=== PATIENT | male | born 1980 | race Caucasian/White ===

== ENCOUNTER 2024-03-31 02:30 | Inpatient (IN) | payer OTHER, SELFPAY ==
[2024-03-31] MEDS ORDERED: IPRATROPIUM BROM 0.5MG/2.5ML ONE (02:46)
[2024-03-31] MEDS ORDERED: METHYLPREDNISOLONE 125 MG INJ ONE (02:46)
[2024-03-31] MEDS ORDERED: LEVALBUTEROL 1.25 MG/3 ML NEB ONE (02:47)
[2024-03-31] MEDS ORDERED: MAGNESIUM SULFATE 1 gm IVPB 1 GM/100 ML BAG IV ONE (02:48)
[2024-03-31 02:58] LABS: Absolute Basophils 0.1 K/uL (0-0.5); Absolute Eosinophils 0.6 K/uL (0-0.5); Absolute Monocytes 1.2 K/uL (0.1-1.3); Absolute Neutrophil 8.1 K/uL (1.8-8.0); Basophils % 0.4 % (0-1.3); Hematocrit 47.1 % (39.6-49.0); Hemoglobin 15.6 g/dL (13.6-17.9); Lymphocytes % 16.6 % (15.3-44.8); MCH 29.4 pg (27.0-35.0); MCHC 33.2 g/dL (32.0-36.0); MCV 88.5 fL (80-100); MPV 8.1 fL (7.6-11.3); Monocytes % 10.1 % (3.3-12.3); Neutrophils % 67.9 % (41.7-73.7); Platelets 246 thou/uL (152-406); RBC Red Blood Cell Count 5.32 M/uL (4.33-5.43)
[2024-03-31 03:05] LABS: PT Prothrombin Time 12.4 SECONDS (9.5-12.5); PTT, Activated Partial Thromb 33.7 SECONDS (24.3-36.9); Protime INR 1.13
[2024-03-31 03:11] LABS: SARS-CoV-2 Antigen CONTROL BLUE LINE VIS/BG OK; SARS-CoV-2 Antigen Rapid Res Negative (Negative)
[2024-03-31 03:17] LABS: Albumin 3.9 g/dL (3.4-5.0); Albumin/Globulin Ratio 0.9 (1.1-1.8); Anion Gap 7.9 mEq/L (5.0-15.0); Bilirubin Total 0.4 mg/dL (0.2-1.0); Globulin 4.5 g/dL (2.3-3.5); Potassium 3.9 mEq/L (3.5-5.1); Protein, Total 8.4 g/dL (6.4-8.2); Troponin High Sensitivity 5.2 pg/mL (<58.9)
[2024-03-31] MEDS ORDERED: CEFTRIAXONE 1000 MG/VIAL ONE (03:52)
[2024-03-31] MEDS ORDERED: AZITHROMYCIN 500 MG INJ IVPB ONE (03:52)
[2024-03-31] MEDS ORDERED: NA CHLORIDE 0.9% 50 ML ONE (03:53)
[2024-03-31] MEDS ORDERED: NA CHLORIDE 0.9% 250 ML ONE (03:53)
--- NOTE | 2024-03-31 04:27 | EDPHYS ---
Physician Documentation [facility] Name: Chuckie Blanca Age: 43 yrs Sex: Male : 1980 Arrival Date: 03/31/2024 Time: 02:30 Bed 3 Private MD: ED Physician Crescencio Byrd HPI: 03/31 04:19 This 43 yrs old Male presents to ER via Wheelchair with complaints of Shortness Of rn Breath. 04:19 The patient has shortness of breath at rest, with light activity. rn 04:20 Onset: The symptoms/episode began/occurred 2 day(s) ago. Duration: The symptoms are rn continuous. The patient's shortness of breath is aggravated by exertion, light activity. Severity of symptoms: At their worst the symptoms were moderate in the emergency department the symptoms are unchanged. The patient has experienced similar episodes in the past. Patient reports feeling sick for 2 or 3 days, productive cough, shortness of breath and dyspnea with exertion. Patient reports heaviness of chest and feels like cannot take a deep breath. No history of DVT or PE. Has had pneumonia before and this feels identical. Reports multiple sick contacts. Patient is active smoker and long-term smoker. Historical: - Allergies: 02:40 No Known Allergies; jw7 - Home Meds: 02:40 Testosterone [Active]; jw7 - PMHx: 02:40 Pneumonia; Kidney stone; hyperlipidemia; jw7 - PSHx: 02:40 Right Knee; Left Hip; Back SX; Cholecystectomy; jw7 - Immunization history:: Adult Immunizations up to date, Client reports having NOT received the Covid vaccine. Flu vaccine is not up to date. - Infectious Disease History:: Denies. - Social history:: Smoking status: Patient reports the use of cigarette tobacco products, smokes one-half pack cigarettes per day, Patient/guardian denies using alcohol, street drugs, IV drugs. - Family history:: not pertinent. - Hospitalizations: : No recent hospitalization is reported. ROS: 04:20 Constitutional: + chills Cardiovascular: Negative for palpitations, and edema, rn Respiratory: + cough and sob Abdomen/GI: Negative for abdominal pain, nausea, vomiting, diarrhea, and constipation, MS/Extremity: Negative for injury and deformity, Skin: Negative for injury, rash, and discoloration, Neuro: + generalized weakness Exam: 04:20 Constitutional: This is a well developed, well nourished patient who is awake, alert, rn + moderate tachypnea and labored breathing Head/Face: Normocephalic, atraumatic. ENT: No stridor Cardiovascular: Tachycardic, regular. No pulse deficits. Respiratory: + Moderate tachypnea with poor inspiratory air movement, diffuse wheezing in upper lobes. Abdomen/GI: Soft, nontender MS/ Extremity: Pulses equal, no cyanosis. Neuro: Awake and alert, GCS 15 Vital Signs: 02:40 BP 161 / 102; Pulse 118; Resp 27 S; Temp 97.5(O); Pulse Ox 87% on R/A; Weight 90.72 kg; jw7 Height 5 ft. 4 in. ; Pain 0/10; 03:00 BP 142 / 81; Pulse 107; Resp 26 S; Pulse Ox 95% on 8 lpm Nebulizer Mask; jw7 03:49 BP 139 / 81; Pulse 102; Resp 17 S; Pulse Ox 98% on Nebulizer Mask; ha1 04:15 BP 137 / 85; Pulse 97; Resp 24 S; Pulse Ox 94% on 3 lpm NC; jw7 04:19 BP 136 / 77; Pulse 101; Resp 28; rn 04:51 BP 131 / 75; Pulse 97; Resp 17 S; Pulse Ox 95% on 4 lpm NC; ha1 02:40 Body Mass Index 34.33 (90.72 kg, 162.56 cm) [facility] 02:40 Pain Scale: Adult [facility] MDM: 02:32 Patient medically screened. rn 04:20 Differential diagnosis: Anemia Bronchitis Chronic Obstructive Pulmonary Disease rn Myocardial Infarction pneumonia, Pneumothorax pulmonary edema. Antibiotic administration: Data reviewed: vital signs, nurses notes, lab test result(s), EKG, radiologic studies, plain films, and as a result, I will admit patient. Consideration of Admission/Observation Patient was admitted/placed on observation. Escalation of care including admission/observation considered. Counseling: I had a detailed discussion with the patient and/or guardian regarding the historical points, exam findings, and any diagnostic results supporting the discharge/admit diagnosis, lab results, radiology results, the need for further work-up and treatment in the hospital. Response to treatment: the patient's symptoms have markedly improved after treatment, and as a result, I will admit patient. ED course: Patient feels much better but still tachypneic, requiring oxygen. Chest x-ray clear of pneumonia but patient with clinical signs and symptoms of pneumonia. No diagnosis of COPD but longtime smoker. Has improved with steroids and nebulizer treatment. No antibiotics administered. Lactate normal. Will admit to hospitalist service for antibiotics and further respiratory management.. 04:20 ED course: I personally spent 35 minutes engaged in work directly related to the rn individual patient's care. This does not include any time spent performing procedures. The patient has been deemed critically ill because of severe respiratory distress requiring multiple nebulizer treatments, oxygen supplementation and further admission to the hospital. 03/31 02:40 Order name: Blood Culture Adult (2) rn 03/31 02:40 Order name: CBC with Diff; Complete Time: 03:44 rn 03/31 02:40 Order name: CMP; Complete Time: 03:44 rn 03/31 02:40 Order name: Lactate w/ 2H reflex if indic.; Complete Time: 03:44 rn 03/31 02:40 Order name: Protime (+inr); Complete Time: 03:44 rn 03/31 02:40 Order name: Ptt, Activated; Complete Time: 03:44 rn 03/31 02:40 Order name: SARS RAPID; Complete Time: 03:44 rn 03/31 02:40 Order name: Flu; Complete Time: 03:44 rn 03/31 02:40 Order name: Troponin High Sensitivity; Complete Time: 03:44 rn 03/31 02:40 Order name: BNP; Complete Time: 03:44 rn 03/31 02:54 Order name: Glucose, Ancillary Testing; Complete Time: 03:44 EDMS 03/31 04:41 Order name: Thyroid Stimulating Hormone EDMS 03/31 04:41 Order name: CBC with Automated Diff EDMS 03/31 04:41 Order name: CBC with Automated Diff EDMS 03/31 04:41 Order name: Comprehensive Metabolic Panel EDMS 03/31 04:41 Order name: Comprehensive Metabolic Panel EDMS 03/31 04:41 Order name: Troponin High Sensitivity EDMS 03/31 04:41 Order name: Troponin High Sensitivity EDMS 03/31 04:41 Order name: Sputum Culture EDMS 03/31 02:40 Order name: Chest Single View XRAY rn 03/31 04:38 Order name: Chest For Pe Angio EDMS 03/31 02:40 Order name: Accucheck; Complete Time: 02:52 rn 03/31 02:40 Order name: Cardiac monitoring; Complete Time: 02:52 rn 03/31 02:40 Order name: EKG - Nurse/Tech; Complete Time: 02:52 rn 03/31 02:40 Order name: IV Saline Lock - Large Bore; Complete Time: 02:52 rn 03/31 02:40 Order name: Labs collected and sent; Complete Time: 02:52 rn 03/31 02:40 Order name: O2 Per Protocol; Complete Time: 02:52 rn 03/31 02:40 Order name: O2 Sat Monitoring; Complete Time: 02:53 rn 03/31 02:40 Order name: Vital Signs; Complete Time: 02:53 rn Administered Medications: 02:50 Drug: MethylPrednisoLONE IVP 125 mg IVP once Route: IVP; Site: left wrist; ha1 05:34 Follow up: Response: No adverse reaction; Marked relief of symptoms jw7 02:50 Drug: Magnesium Sulfate IVPB 1 grams IVPB once over 1 hrs Route: IVPB; Infused Over: 1 ha1 hrs; Site: left wrist; 05:34 Follow up: Response: No adverse reaction; IV Status: Completed infusion; IV Intake: jw7 100ml 02:57 Drug: Ipratropium Inhalation Aerosol 0.5 mg Inhalation once Route: Inhalation; ha1 05:34 Follow up: Response: No adverse reaction; Marked relief of symptoms jw7 02:57 Drug: Levalbuterol Inhalation 1.25 mg Inhalation once Route: Inhalation; ha1 05:33 Follow up: Response: No adverse reaction; Marked relief of symptoms jw7 03:30 Drug: Levalbuterol Inhalation 1.25 mg Inhalation once Route: Inhalation; ha1 05:34 Follow up: Response: No adverse reaction; Marked relief of symptoms jw7 03:30 Drug: Levalbuterol Inhalation 1.25 mg Inhalation once Route: Inhalation; ha1 05:33 Follow up: Response: No adverse reaction; Marked relief of symptoms jw7 03:50 Drug: Rocephin IV 1 grams IV at calculated rate once; Given slow IV push per pharmacy jw7 instructions Route: IV; Rate: calculated rate; Site: left wrist; 05:33 Follow up: Response: No adverse reaction; IV Status: Completed infusion; IV Intake: [id number] 04:10 Drug: Zithromax IVPB 500 mg IVPB once over 1 hrs; mix in 250 mL NS Route: IVPB; Infused jw7 Over: 1 hrs; Site: left wrist; 05:33 Follow up: Response: No adverse reaction; IV Status: Completed infusion; IV Intake: jw7 250ml Disposition: 04:20 Critical Care:. rn Disposition Summary: 03/31/24 04:26 Hospitalization Ordered Notes: Hospitalization Status: Inpatient Admission rn Provider: Ann Reilly rn Location: Telemetry/MedSurg (Inpatient) rn Condition: Stable rn Problem: new rn Symptoms: have improved rn Bed/Room Type: Standard rn Room Assignment: 218(03/31/24 04:44) kb3 Diagnosis - Pneumonia, unspecified organism rn - Hypoxemia rn Forms: - Medication Reconciliation Form rn - SBAR form rn - Leadership Thank You Letter manager internet time excluding procedures: 04:20 Critical care time: Bedside Care: 35 minutes. Total time: 35 minutes rn Signatures: Dispatcher [employer] EDCrescencio Chau MD MD rn Waits, Jodi RN RN jw7 Bruna Mckeon, RN RN ha1 Trisha Land, RN RN kb3 Corrections: (The following items were deleted from the chart) 02:41 02:41 BLOOD CULTURE*+BA.LAB.BRZ ordered. EDMS EDMS 02:41 02:41 CBC+H.LAB.BRZ ordered. EDMS EDMS 02:41 02:41 COMPREHENSIVE METABOLIC PANEL+C.LAB.BRZ ordered. EDMS EDMS 02:41 02:41 LACTATE+C.LAB.BRZ ordered. EDMS EDMS 02:41 02:41 PROTIME (+INR)+COAG.LAB.BRZ ordered. EDMS EDMS 02:41 02:41 PTT, ACTIVATED+COAG.LAB.BRZ ordered. EDMS EDMS 02:41 02:41 SARS-COV-2 Antigen Rapid+I.LAB.BRZ ordered. EDMS EDMS 02:41 02:41 Influenza Screen (A \T\ B)+BA.LAB.BRZ ordered. EDMS EDMS 02:41 02:41 Troponin High Sensitivity+C.LAB.BRZ ordered. EDMS EDMS 02:41 02:41 PROBNP+C.LAB.BRZ ordered. EDMS EDMS 02:41 02:41 Chest Single View+RAD.RAD.BRZ ordered. EDMS EDMS 04:21 04:20 Constitutional: + chills Cardiovascular: Negative for chest pain, palpitations, rn and edema, Respiratory: + cough and sob Abdomen/GI: Negative for abdominal pain, nausea, vomiting, diarrhea, and constipation, MS/Extremity: Negative for injury and deformity, Skin: Negative for injury, rash, and discoloration, Neuro: + generalized weakness rn 04:24 04:20 Constitutional: This is a well developed, well nourished patient who is awake, rn alert, and in no acute distress. rn 04:44 04:26 rn kb3
--- NOTE | 2024-03-31 04:27 | ER ---
Nurse's Notes [facility] Name: Chuckie Blanca Age: 43 yrs Sex: Male : 1980 Arrival Date: 03/31/2024 Time: 02:30 Bed 3 Private MD: Diagnosis: Pneumonia, unspecified organism;Hypoxemia Presentation: 03/31 02:40 Chief complaint: Patient states: Shortness of Breath for two days, feels like someone jw7 is sitting on my chest, making it hard to breath. Coronavirus screen: cough unrelated to allergies, difficulty breathing, shortness of breath. Ebola Screen: No symptoms or risks identified at this time. 02:40 Method Of Arrival: Wheelchair jw7 02:40 Initial Sepsis Screen: Does the patient meet any 2 criteria? RR > 20 per min. HR > 90 jw7 bpm. Yes Does the patient have a suspected source of infection? No. Patient's initial sepsis screen is negative. Risk Assessment: Do you want to hurt yourself or someone else? Patient reports no desire to harm self or others. Onset of symptoms was March 29, 2024. 02:40 Acuity: HAY 3 jw7 Triage Assessment: 02:32 General: Appears uncomfortable, Behavior is cooperative, agitated, anxious. Pain: ha1 Denies pain. Neuro: Level of Consciousness is awake, alert, obeys commands, Oriented to person, place, time, situation. Cardiovascular: Capillary refill < 3 seconds Patient's skin is warm and dry. Respiratory: Reports shortness of breath at rest cough that is non-productive, labored breathing Airway is patent Respiratory effort is with nasal flaring, Respiratory pattern is tachypnea Breath sounds with wheezes bilaterally. GI: Abdomen is round non-distended. : No signs and/or symptoms were reported regarding the genitourinary system. Derm: Skin is healthy with good turgor, Skin is diaphoretic, Skin is normal. Musculoskeletal: Circulation, motion, and sensation intact. Range of motion: intact in all extremities. Historical: - Allergies: 02:40 No Known Allergies; jw7 - Home Meds: 02:40 Testosterone [Active]; jw7 - PMHx: 02:40 Pneumonia; Kidney stone; hyperlipidemia; jw7 - PSHx: 02:40 Right Knee; Left Hip; Back SX; Cholecystectomy; jw7 - Immunization history:: Adult Immunizations up to date, Client reports having NOT received the Covid vaccine. Flu vaccine is not up to date. - Infectious Disease History:: Denies. - Social history:: Smoking status: Patient reports the use of cigarette tobacco products, smokes one-half pack cigarettes per day, Patient/guardian denies using alcohol, street drugs, IV drugs. - Family history:: not pertinent. - Hospitalizations: : No recent hospitalization is reported. Screenin:32 Abuse screen: Denies threats or abuse. Denies injuries from another. Nutritional ha1 screening: No deficits noted. Tuberculosis screening: No symptoms or risk factors identified. 02:40 [facility] ED Fall Risk Assessment (Adult) History of falling in the last 3 months, jw7 including since admission No falls in past 3 months (0 pts) Confusion or Disorientation No (0 pts) Intoxicated or Sedated No (0 pts) Impaired Gait No (0 pts) Mobility Assist Device Used No (0 pt) Altered Elimination No (0 pt) Score/Fall Risk Level 0 - 2 = Low Risk Oriented to surroundings, Maintained a safe environment, Educated pt \T\ family on fall prevention, incl call for assistance when getting out of bed. Assessment: 02:32 Reassessment: see triage assessment. ha1 03:30 Reassessment: Patient appears in no apparent distress at this time. No changes from jw7 previously documented assessment. Patient and/or family updated on plan of care and expected duration. Pain level reassessed. Patient is alert, oriented x 3, equal unlabored respirations, skin warm/dry/pink. 04:36 Reassessment: Patient appears in no apparent distress at this time. No changes from jw7 previously documented assessment. Patient and/or family updated on plan of care and expected duration. Pain level reassessed. Patient is alert, oriented x 3, equal unlabored respirations, skin warm/dry/pink. 04:57 Reassessment: going to CT. ha1 Vital Signs: 02:40 BP 161 / 102; Pulse 118; Resp 27 S; Temp 97.5(O); Pulse Ox 87% on R/A; Weight 90.72 kg; jw7 Height 5 ft. 4 in. ; Pain 0/10; 03:00 BP 142 / 81; Pulse 107; Resp 26 S; Pulse Ox 95% on 8 lpm Nebulizer Mask; jw7 03:49 BP 139 / 81; Pulse 102; Resp 17 S; Pulse Ox 98% on Nebulizer Mask; ha1 04:15 BP 137 / 85; Pulse 97; Resp 24 S; Pulse Ox 94% on 3 lpm NC; jw7 04:19 BP 136 / 77; Pulse 101; Resp 28; rn 04:51 BP 131 / 75; Pulse 97; Resp 17 S; Pulse Ox 95% on 4 lpm NC; ha1 02:40 Body Mass Index 34.33 (90.72 kg, 162.56 cm) jw7 02:40 Pain Scale: Adult 7 ED Course: 02:30 First set of blood cultures drawn by ED staff. jw7 02:32 Patient arrived in ED. kmf 02:32 Crescencio Byrd MD is Attending Physician. rn 02:40 Arm band placed on. jw7 02:40 Patient has correct armband on for positive identification. Bed in low position. Call 7 light in reach. Side rails up X 1. 02:40 Provided Education on: Use of Call Light. jw7 02:45 Inserted saline lock: 20 gauge in left wrist, using aseptic technique. Blood collected. jw7 02:45 Initial lab(s) drawn, by ED staff, sent to lab. Second set of blood cultures drawn by [facility] ED staff. 02:49 COVID swab sent to lab. Flu and/or RSV swab sent to lab. jw7 02:53 Blood Culture Adult (2) Sent. jw7 02:53 CBC with Diff Sent. jw7 02:53 CMP Sent. jw7 02:53 Lactate w/ 2H reflex if indic. Sent. jw7 02:53 Protime (+inr) Sent. jw7 02:53 Ptt, Activated Sent. jw7 02:53 SARS RAPID Sent. jw7 02:53 Flu Sent. jw7 02:53 Troponin High Sensitivity Sent. jw7 02:53 BNP Sent. jw7 02:54 EKG done, by ED staff, reviewed by Crescencio Byrd MD. kmf 02:57 Triage completed. jw7 03:09 Chest Single View XRAY In Process Unspecified. EDMS 04:25 Ann Reilly MD is Hospitalizing Provider. rn 05:23 No provider procedures requiring assistance completed. Patient admitted, IV remains in ha1 place. Administered Medications: 02:50 Drug: MethylPrednisoLONE IVP 125 mg IVP once Route: IVP; Site: left wrist; ha1 05:34 Follow up: Response: No adverse reaction; Marked relief of symptoms jw7 02:50 Drug: Magnesium Sulfate IVPB 1 grams IVPB once over 1 hrs Route: IVPB; Infused Over: 1 ha1 hrs; Site: left wrist; 05:34 Follow up: Response: No adverse reaction; IV Status: Completed infusion; IV Intake: jw7 100ml 02:57 Drug: Ipratropium Inhalation Aerosol 0.5 mg Inhalation once Route: Inhalation; ha1 05:34 Follow up: Response: No adverse reaction; Marked relief of symptoms jw7 02:57 Drug: Levalbuterol Inhalation 1.25 mg Inhalation once Route: Inhalation; ha1 05:33 Follow up: Response: No adverse reaction; Marked relief of symptoms jw7 03:30 Drug: Levalbuterol Inhalation 1.25 mg Inhalation once Route: Inhalation; ha1 05:34 Follow up: Response: No adverse reaction; Marked relief of symptoms jw7 03:30 Drug: Levalbuterol Inhalation 1.25 mg Inhalation once Route: Inhalation; ha1 05:33 Follow up: Response: No adverse reaction; Marked relief of symptoms jw7 03:50 Drug: Rocephin IV 1 grams IV at calculated rate once; Given slow IV push per pharmacy jw7 instructions Route: IV; Rate: calculated rate; Site: left wrist; 05:33 Follow up: Response: No adverse reaction; IV Status: Completed infusion; IV Intake: [id number] 04:10 Drug: Zithromax IVPB 500 mg IVPB once over 1 hrs; mix in 250 mL NS Route: IVPB; Infused jw7 Over: 1 hrs; Site: left wrist; 05:33 Follow up: Response: No adverse reaction; IV Status: Completed infusion; IV Intake: jw7 250ml Medication: 05:23 VIS not applicable for this client. ha1 Intake: 05:33 IV: 250ml; Total: 250ml. jw7 05:33 IV: 50ml; Total: 300ml. jw7 05:34 IV: 100ml; Total: 400ml. jw7 Outcome: 04:26 Decision to Hospitalize by Provider. rn 05:25 Admitted to Med/surg accompanied by nurse, via stretcher, with chart, ha1 05:25 Condition: stable 05:25 Instructed on the need for admit, Demonstrated understanding of instructions, 05:35 Patient left the ED. jw7 Signatures: Dispatcher [employer] EDMS Crescencio Byrd MD MD rn Waits, Jodi RN RN jw7 Bruna Mckeon RN RN 1 Miesha Patel [facility]
[2024-03-31] MEDS ORDERED: ONDANSETRON 4 MG/2 ML VIAL IV PRN (04:36)
[2024-03-31] MEDS ORDERED: MORPHINE 2 MG/ML SYR IV PRN (04:36)
[2024-03-31] MEDS ORDERED: ALBUTEROL 2.5 MG/3 ML NEB SOL NEB PRN (04:36)
[2024-03-31] MEDS ORDERED: ACETAMINOPHEN 500 MG TAB PO PRN (04:36)
[2024-03-31] MEDS ORDERED: HYDRALAZINE HCL 20 MG/ML VIAL IV PRN ×2 (04:38→05:01)
--- NOTE | 2024-03-31 04:45 | P.HP ---
Certification for Inpatient Patient admitted to: Observation With expected LOS: <2 Midnights Patient will require the following post-hospital care: None Practitioner: I am a practitioner with admitting privileges, knowledge of patient current condition, hospital course, and medical plan of care. Services: Services provided to patient in accordance with Admission requirements found in Title 42 Section 412.3 of the Code of Federal Regulations Patient History Date of Service: 03/31/24 Reason for admission: Shortness of breath History of Present Illness: 43-year-old male with past medical history of kidney stones, recurrent pneumonia last episode was in 2013, chronic tobacco user, who presented with sudden onset shortness of breath since the last 2 days. Patient states shortness of breath has been gradually worsening. He states shortness of breath exacerbated with chest pressure. He admits to cough with intermittent wheezing.. He states is a s if someone is sitting on his chest, chest pressure remained persistent and constant. He denies any dizziness or palpitation. He admits to regular testosterone use. On arrival in the ER, he was tachycardic with heart rate of 118, O2 sat of 87% on room air. Afebrile. Chest x-ray shows no acute pulmonary infiltrate (although images reviewed by me shows what looks like a small right perihilar infiltrate). WBC elevated at 12,000 with no left shift, BMP was unremarkable. Patient is being admitted for presumed pneumonia - Past Medical/Surgical History -: Kidney stone -: Hyperlipidemia -: Cholecystectomy -: Back surgery -: Knee and hip surgery - Family History Family History: Reviewed- Non-Contributory - Social History Smoking Status: Current every day smoker Smoking therapy provided: Yes Patient receptive to therapy: Yes Alcohol use: No CD- Drugs: No Caffeine use: No Place of Residence: Home Review of Systems Respiratory: Cough, Shortness of Breath, SOB with Excertion, Pleuritic Pain Physical Examination - Physical Exam General: Alert, In no apparent distress, Oriented x3, Cooperative, Mild distress, Obese HEENT: Atraumatic, Normocephalic, Mucous membr. moist/pink Neck: Supple, 2+ carotid pulse no bruit Respiratory: Normal air movement, Expiratory wheezes, Rhonchi/gurgles Cardiovascular: No edema, Regular rate/rhythm, Normal S1 S2 Gastrointestinal: Normal bowel sounds, Soft and benign, Non-distended, No ascites, No tenderness Musculoskeletal: No clubbing, No swelling Integumentary: No rashes, No significant lesion, No tenderness/swelling Neurological: Normal speech, Normal strength at 5/5 x4 extr, Sensation intact, Cranial nerves 3-12 intact - Studies Laboratory Data (last 24 hrs) 03/31/24 03/31/24 03/31/24 02:45 02:45 02:45 WBC 12.00 H Hgb 15.6 Hct 47.1 Plt Count 246 PT 12.4 INR 1.13 APTT 33.7 Sodium 136 Potassium 3.9 BUN 17 Creatinine 0.97 Glucose 137 H Total Bilirubin 0.4 AST 17 ALT 38 Alkaline Phosphatase 91 Microbiology Data (last 24 hrs): 03/31/24 02:45 Nasopharnyx Influenza Type A Antigen Screen - Final 03/31/24 02:45 Nasopharnyx Influenza Type B Antigen Screen - Final Assessment and Plan - Plan Impression Acute dyspneawith suspected right lower lobe pneumoniacommunity-acquired; rule out pulmonary embolism given history of testosterone use Hypoxic respiratory failureon O2, COPD exacerbationmild Chronic tobacco use History of testosterone use Plan Will admit patient to observation Initiate oxygen at 2 L nasal cannula Wean as tolerated Start gentle IV fluid with normal saline Start empirical antibiotics with cefepime Obtain sputum culture. And sensitivity DuoNebs every 6 Blood culture x 2 Obtain CTA chest to rule out PE Pain control Lovenox 1 mg/kg every 12 empirically on tPA ruled out Full code - Advance Directives Does patient have a Living Will: No Does patient have a Durable POA for Healthcare: No
[2024-03-31] MEDS ORDERED: BENZONATATE 100 MG CAP PO PRN (05:01)
[2024-03-31] MEDS: NA CHLORIDE 0.9% 1,000 ML IV SCH (05:48)
[2024-03-31] MEDS: ENOXAPARIN 80 MG/0.8 ML SQ SCH (06:03)
[2024-03-31 07:00] VITALS: BMI 34.3
[2024-03-31] MEDS: IPRATROPIUM BROM 0.5MG/2.5ML NEB SCH (08:07)
[2024-03-31] MEDS: ALBUTEROL 2.5 MG/3 ML NEB SOL NEB SCH (08:07)
[2024-03-31] MEDS ORDERED: MORPHINE 4 MG/ML SYR IV PRN (08:10)
[2024-03-31] MEDS: NICOTINE 21 MG/PAT TD SCH (09:00)
[2024-03-31] MEDS: CEFEPIME 1 GM in NA CHLORIDE 0.9% 100 ML IV SCH (10:09)
[2024-03-31] MEDS: FAMOTIDINE 20 MG TAB PO SCH (10:09)
[2024-03-31] MEDS: ASPIRIN EC 81 MG TAB PO SCH (10:09)
--- NOTE | 2024-03-31 10:38 | P.PN ---
Date of Service: 03/31/24 Pt seen and examined. Pt is a 43 yo male with past medical history of kidney stones, recurrent pneumonia last episode was in 2013, and chronic tobacco user who presented with sudden onset shortness of breath since the last 2 days. A/P: Acute dyspnea: likely due to pneumonia or PE or COPD exacerbation: Will continue cefepime and f/u blood cx. Will continue empiric therapeutic lovenox. CTA chest is pending. Possible PE: Will continue therapeutic lovenox. Will f/u CTA chest. Acute COPD exacerbation: Will continue solumedrol 40mg iv TID, cefepime, oxygen and prn duoneb. WIll consult Pulm. Pt is a smoker. Acute Hypoxic respiratory failure: Due to COPD/ pna/ possible PE. Continue treatment listed above. Chronic tobacco use: Pt was advised to quit using tobacco. Will give nicotine patch. History of testosterone use: noted. DVT ppx: lovenox. Code: Full code
[2024-03-31] MEDS: GUAIFENESIN 600 MG SA TAB PO SCH (11:14)
--- NOTE | 2024-03-31 15:26 | EKG ---
Test Date: 2024-03-31 Test Time: 02:41:24 Drug Enforcement Agent: SHEELA MEASUREMENT RESULTS: Intervals: Rate: 108 IL: 136 QRSD: 88 QT: 324 QTc: 434 [place]: P: 72 IL: 136 QRS: 68 T: 74 INTERPRETIVE STATEMENTS: Sinus tachycardia Otherwise normal ECG No previous ECG available for comparison Electronically Signed On 03-31-24 15:26:11 CDT by Nasim Pascual
[2024-03-31] MEDS: METHYLPREDNISOLONE 40 MG INJ IV SCH (17:02)
[2024-04-01 04:17] LABS: Absolute Monocytes 0.6 K/uL (0.1-1.3); Absolute Neutrophil 10.1 K/uL (1.8-8.0); Basophils % 0.1 % (0-1.3); Eosinophils % 0.1 % (0-4.4); Hematocrit 41.6 % (39.6-49.0); Hemoglobin 13.6 g/dL (13.6-17.9); Lymphocytes % 8.5 % (15.3-44.8); MCH 29.3 pg (27.0-35.0); MCHC 32.8 g/dL (32.0-36.0); MCV 89.3 fL (80-100); Monocytes % 5.1 % (3.3-12.3); Neutrophils % 86.2 % (41.7-73.7); Platelets 231 thou/uL (152-406); RBC Red Blood Cell Count 4.66 M/uL (4.33-5.43); Red Cell Distribution Width 13.1 % (12.1-15.2)
[2024-04-01 04:22] LABS: Albumin 3.2 g/dL (3.4-5.0); Albumin/Globulin Ratio 0.8 (1.1-1.8); Anion Gap 7.1 mEq/L (5.0-15.0); Bilirubin Total 0.2 mg/dL (0.2-1.0); Globulin 4.1 g/dL (2.3-3.5); Potassium 5.1 mEq/L (3.5-5.1); Protein, Total 7.3 g/dL (6.4-8.2); Troponin High Sensitivity 12.5 pg/mL (<58.9)
[2024-04-01 04:43] LABS: Band Neutrophils 25 % (0-1); Differential Total Cells Count 100; Lymphocytes 6 % (15-42); Monocytes 4 % (0-10); Segmented Neutrophils 65 % (40-80)
[2024-04-01 04:44] LABS: Blood Morphology Comment NOT SEEN (NOT SEEN); Platelet Estimate ADEQ
--- NOTE | 2024-04-01 08:47 | P.PN ---
Subjective Date of Service: 04/01/24 Chief Complaint: Shortness of breath 43-year-old male with past medical history of kidney stones, recurrent pneumonia last episode was in 2013, chronic tobacco user, who presented with sudden onset shortness of breath since the last 2 days. Is noted to have pneumonia, treated with IV antibiotics, CT PE protocol negative for PE - Physical Exam General: Alert, In no apparent distress, Oriented x3, Cooperative, Mild distress, Obese HEENT: Atraumatic, Normocephalic, Mucous membr. moist/pink Neck: Supple, 2+ carotid pulse no bruit Respiratory: Normal air movement, Expiratory wheezes, Rhonchi/gurgles Cardiovascular: No edema, Regular rate/rhythm, Normal S1 S2 Gastrointestinal: Normal bowel sounds, Soft and benign, Non-distended, No ascites, No tenderness Musculoskeletal: No clubbing, No swelling Integumentary: No rashes, No significant lesion, No tenderness/swelling Neurological: Normal speech, Normal strength at 5/5 x4 extr, Sensation intact, Cranial nerves 3-12 intact Review of Systems Per HPI Physical Examination - Vital Signs Temperature: 98 F Blood Pressure: 128/73 Pulse: 91 Respirations: 20 Pulse Ox (%): 95 Assessment And Plan - Plan Assessment plan Acute dyspneawith suspected right lower lobe pneumoniacommunity-acquired; rule out pulmonary embolism given history of testosterone use Hypoxic respiratory failureon O2, secondary to pneumonia COPD exacerbationmild Obstructive sleep apnea Chronic tobacco use History of testosterone use Pulmonary nodule Plan Will admit patient to observation Initiate oxygen at 2 L nasal cannula-evaluation need for home with Wean as tolerated Start gentle IV fluid with normal saline Start empirical antibiotics with cefepime Obtain sputum culture. And sensitivity DuoNebs every 6 Blood culture x 2 Obtain CTA chest to rule out PE negative for PE, will need repeat CT scan in 3 to 6 months after discharge lung RADS guidelines 2017 Pain control Will need eval for outpatient sleep study DVT Lovenox 1 mg/kg every 12 empirically on tPA ruled out Full code Cardiac diet Discharge Plan: Home - Code Status/Comfort Care Code Status: Full Code Critical Care: No Time Spent Managing PTS Care (In Minutes): 35
--- NOTE | 2024-04-01 10:07 | RAD REPORT ---
EXAM DESCRIPTION: CT - Chest For Pe Angio - 03/31/2024 6:59 am CLINICAL HISTORY: R/o PE COMPARISON: None. TECHNIQUE: CT CHEST ANGIOGRAPHY WITH IV CONTRAST on 03/31/2024 4:36 AM CDT. MIPS reconstructions were generated. This exam was performed according to our departmental dose-optimization program, which includes autom ated exposure control, adjustment of the mA and/or kV according to patient size and/or use of iterati ve reconstruction technique. MIP images were generated. FINDINGS: Thoracic aorta is normal in course and caliber without aneurysm or dissection. Pulmonary a rteries are suboptimally opacified. There are no large central filling defects. The heart is normal in size. There is no pericardial effusion. Intrathoracic lymph nodes are not enla rged. There is no pleural effusion, pleural thickening or pneumothorax. Central airways are patent. There i s minimal airspace disease in the medial right middle lobe. There is a posterior right lower lobe pul monary nodule measuring 6 mm. There is a 3 mm lingular nodule. There are no acute abnormalities within the limited images of the upper abdomen. There are no acute osseous findings. No suspicious bony lesions. IMPRESSION: No aortic dissection or aneurysm. No large or central pulmonary embolus. Possible right middle lobe pneumonia. Multiple pulmonary nodules. Most significant: Right solid pulmonary nodule measuring 6 mm. Per Fleisc hner Society Guidelines, recommend a non-contrast Chest CT at 3-6 months, then consider another non-c ontrast Chest CT at 18-24 months. If patient is low risk for malignancy, non-contrast Chest CT at 18- 24 months is optional. These guidelines do not apply to immunocompromised patients and patients with cancer. Follow up in pa tients with significant comorbidities as clinically warranted. For lung cancer screening, adhere to L [place]uke-RADS guidelines. Reference: Radiology. 2017; 284(1):228-43. Electronically signed by: Randall Olguin MD 03/31/2024 06:19 AM CDT RP Due to temporary technical issues with the PACS/Fluency reporting system, reports are being signed by the in house radiologist without review as a courtesy to ensure prompt reporting. The interpreting r adiologist is fully responsible for the content of the report.
--- NOTE | 2024-04-01 11:23 | RAD REPORT ---
EXAM DESCRIPTION: RAD - Chest Single View - 03/31/2024 3:07 am CLINICAL HISTORY: 43 years, Male, Cough;Dyspnea COMPARISON: None FINDINGS: 1 views of the chest was obtained. No prior films are available at this time for compari son. There is normal lung volume. Mediastinum: The cardiomediastinal silhouette appears normal in size and shape. Lungs: No areas of consolidations or masses are identified. Heart: The heart is normal in size. Thoracic aorta: The thoracic aorta demonstrate to be normal. Pulmonary vasculature: The pulmonary vasculature is normal in distribution. Pleura: The costophrenic angles demonstrate to be sharp. Osseous structures: The bony structures demonstrate to be within normal limits. Other: External EKG leads within the [id number] limits diagnosis. IMPRESSION: No acute cardiopulmonary disease is seen Electronically signed by: Lencho Reyez MD 03/31/2024 03:53 AM CDT RP Due to temporary technical issues with the PACS/Fluency reporting system, reports are being signed by the in house radiologist without review as a courtesy to ensure prompt reporting. The interpreting r adiologist is fully responsible for the content of the report.
--- NOTE | 2024-04-01 12:05 | EKG ---
Test Date: 2024-03-31 Test Time: 02:42:50 Mimeographer: SHEELA MEASUREMENT RESULTS: Intervals: Rate: 104 [place]: 128 QRSD: 88 QT: 332 QTc: 436 [place]: P: 59 [place]: 128 QRS: 71 T: 71 INTERPRETIVE STATEMENTS: Sinus tachycardia Otherwise normal ECG Compared to ECG 03/31/2024 02:41:24 No significant changes Electronically Signed On 04-01-24 12:03:20 CDT by Nasim Pascual
[2024-04-01] MEDS ORDERED: ALBUTEROL 2.5 MG/3 ML NEB SOL NEB PRN (12:16)
--- NOTE | 2024-04-01 12:20 | P.CNS ---
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 had 2 episodes of an exacerbation since 2012 was hospitalized twice apparently at one time he was also intubated denies any previous history of dyspnea on exertion does not know history of COPD Allergies No Known Allergies Allergy (Unverified 03/31/24 05:06) - Past Medical/Surgical History Diabetic: No -: Kidney stone -: Hyperlipidemia -: pneumonia -: Cholecystectomy -: Back surgery -: Knee and hip surgery - Social History Smoking Status: Current every day smoker Alcohol use: No CD- Drugs: No Caffeine use: Yes Place of Residence: Home Review of Systems 10-point ROS is otherwise unremarkable Physical Examination Temp Pulse Resp BP Pulse Ox 98 F 91 H 20 128/73 95 04/01/24 08:50 04/01/24 08:50 04/01/24 08:50 04/01/24 08:50 04/01/24 08:50 General: Alert, Oriented x3 Respiratory: Expiratory wheezes Cardiovascular: No edema, Normal pulses, Regular rate/rhythm Gastrointestinal: Normal bowel sounds, Soft and benign Musculoskeletal: No clubbing, No swelling Laboratory Data (last 24 hrs) 04/01/24 04/01/24 03:07 03:07 WBC 11.70 H Hgb 13.6 D Hct 41.6 Plt Count 231 Sodium 137 Potassium 5.1 D BUN 23 H Creatinine 1.03 Glucose 219 H Total Bilirubin 0.2 AST 16 ALT 33 Alkaline Phosphatase 75 - Problems (1) COPD exacerbation Current Visit: Yes Status: Acute Plan: Patient is 43 years of age admitted with COPD exacerbation there is minimal infiltrate in the right middle lobe he is a heavy smoker history of exacerbations when changed to p.o. 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
[2024-04-01] MEDS: IPRATROPIUM BROM 0.5MG/2.5ML NEB SCH (13:23)
[2024-04-01] MEDS ORDERED: predniSONE 20 MG TAB PO SCH (21:00)
[2024-04-01] MEDS: AMOX/K CLAV 875 MG TAB PO SCH (21:23)
[2024-04-01] MEDS: predniSONE 20 MG TAB PO SCH (21:23)
[2024-04-01] MEDS: DULERA 200/5 (MOMETASONE/FORMOTEROL) INHALER IH SCH (21:23)
[2024-04-02 01:37] VITALS: O2SAT 96
[2024-04-02 03:37] LABS: Absolute Lymphocytes (CBC) 1.2 K/uL (0.7-4.9); Absolute Monocytes 0.7 K/uL (0.1-1.3); Absolute Neutrophil 13.8 K/uL (1.8-8.0); Basophils % 0.1 % (0-1.3); Eosinophils % 0.1 % (0-4.4); Hematocrit 39.7 % (39.6-49.0); Hemoglobin 13.2 g/dL (13.6-17.9); Lymphocytes % 7.7 % (15.3-44.8); MCH 29.4 pg (27.0-35.0); MCHC 33.2 g/dL (32.0-36.0); MCV 88.7 fL (80-100); Monocytes % 4.8 % (3.3-12.3); Platelets 240 thou/uL (152-406); RBC Red Blood Cell Count 4.47 M/uL (4.33-5.43)
[2024-04-02 03:53] LABS: Neutrophils % 87.3 % (41.7-73.7)
[2024-04-02 04:02] LABS: Anion Gap 6.1 mEq/L (5.0-15.0); Magnesium 2.3 mg/dL (1.6-2.4); Potassium 4.1 mEq/L (3.5-5.1)
[2024-04-02 05:42] VITALS: BP 140/87; TEMP 98.1
--- NOTE | 2024-04-02 08:14 | P.PN ---
Subjective Date of Service: 04/02/24 Chief Complaint: Shortness of breath 43-year-old male with past medical history of kidney stones, recurrent pneumonia last episode was in 2013, chronic tobacco user, who presented with sudden onset shortness of breath since the last 2 days. Is noted to have pneumonia, treated with IV antibiotics, transitioned to Augmentin PO BID CT PE protocol negative for PE - Physical Exam General: Alert, In no apparent distress, Oriented x3, Cooperative, Mild distress, Obese HEENT: Atraumatic, Normocephalic, Mucous membr. moist/pink Neck: Supple, 2+ carotid pulse no bruit Respiratory: Normal air movement, Expiratory wheezes, Rhonchi/gurgles Cardiovascular: No edema, Regular rate/rhythm, Normal S1 S2 Gastrointestinal: Normal bowel sounds, Soft and benign, Non-distended, No ascites, No tenderness Musculoskeletal: No clubbing, No swelling Integumentary: No rashes, No significant lesion, No tenderness/swelling Neurological: Normal speech, Normal strength at 5/5 x4 extr, Sensation intact, Cranial nerves 3-12 intact Review of Systems per HPI Physical Examination - Vital Signs Temperature: 98.1 F Blood Pressure: 140/87 Pulse: 75 Respirations: 18 Pulse Ox (%): 96 Assessment And Plan - Plan Assessment plan Acute dyspneawith suspected right lower lobe pneumoniacommunity-acquired; rule out pulmonary embolism given history of testosterone use Hypoxic respiratory failureon O2, secondary to pneumonia COPD exacerbationmild Obstructive sleep apnea Chronic tobacco use History of testosterone use Pulmonary nodule Plan Will admit patient to observation Initiate oxygen at 2 L nasal cannula-evaluation need for home with Wean as tolerated Start gentle IV fluid with normal saline Start empirical antibiotics with cefepime Obtain sputum culture. And sensitivity DuoNebs every 6 Blood culture x 2 Obtain CTA chest to rule out PE negative for PE, will need repeat CT scan in 3 to 6 months after discharge lung RADS guidelines 2017 Pain control Will need eval for outpatient sleep study DVT Lovenox 1 mg/kg every 12 empirically on tPA ruled out Full code Cardiac diet Discharge Plan: Home Critical Care: No Time Spent Managing PTS Care (In Minutes): 35
--- NOTE | 2024-04-02 08:16 | P.DS ---
Admission Date: 04/01/24 Discharge Date: 04/03/24 Disposition: ROUTINE DISCHARGE Discharge Condition: GOOD Reason for Admission: Shortness of breath Brief History of Present Illness: 43-year-old male with past medical history of kidney stones, recurrent pneumonia last episode was in 2013, chronic tobacco user, who presented with sudden onset shortness of breath since the last 2 days. Patient states shortness of breath has been gradually worsening. He states shortness of breath exacerbated with chest pressure. He admits to cough with intermittent wheezing.. He states is as if someone is sitting on his chest, chest pressure remained persistent and constant. He denies any dizziness or palpitation. He admits to regular testosterone use. On arrival in the ER, he was tachycardic with heart rate of 118, O2 sat of 87% on room air. Afebrile. Chest x-ray shows no acute pulmonary infiltrate (although images reviewed by me shows what looks like a small right perihilar infiltrate). WBC elevated at 12,000 with no left shift, BMP was unremarkable. Patient is being admitted for presumed pneumonia - Physical Exam General: Alert, In no apparent distress, Oriented x3, Cooperative, Mild distress, Obese HEENT: Atraumatic, Normocephalic, Mucous membr. moist/pink Neck: Supple, 2+ carotid pulse no bruit Respiratory: Normal air movement, equal unlabored Cardiovascular: No edema, Regular rate/rhythm, Normal S1 S2 Gastrointestinal: Normal bowel sounds, Soft and benign, Non-distended, No ascites, No tenderness Musculoskeletal: No clubbing, No swelling Integumentary: No rashes, No significant lesion, No tenderness/swelling Neurological: Normal speech, Normal strength at 5/5 x4 extr, Sensation intact, Cranial nerves 3-12 intact Hospital Course: 43 year-old male with past medical history of kidney stones, recurrent pneumonia last episode was in 2013, chronic tobacco user, who presented with sudden onset shortness of breath since the last 2 days. Patient states shortness of breath has been gradually worsening. He states shortness of breath exacerbated with chest pressure. He admits to cough with intermittent wheezing was evaluated by Pulmonary, can Discharge home, follow up with Pulmonary after discharge Assessment COPD Exacerbation Pnuemonia- DC home on inhalers, PO antibitotics, follow up with Pulmonary in 1-2 weeks Tobacco use- educated on Tobacco cessation Continue home medicines as previously prescribed GOAL: Clear understanding of disease process INSTRUCTIONS: Physician Discharge Instructions: -Follow-up with PCP in 1 to 2 weeks -Please call Dr. Seth at [phone] if any questions regarding hospital stay -Please call nursing station at [phone] if any nursing or medication questions -Return to the emergency room if symptoms worsen Diet: ADA, low sodium Activity: Fall precautions Vital Signs/Physical Exam: Temp Pulse Resp BP Pulse Ox 98.1 F 75 18 140/87 96 04/02/24 08:15 04/02/24 08:15 04/02/24 08:15 04/02/24 08:15 04/02/24 08:15 Laboratory Data at Discharge: WBC 15.80 thou/uL (4.3-10.9) H 04/02/24 02:43 Hgb 13.2 g/dL (13.6-17.9) L 04/02/24 02:43 Hct 39.7 % (39.6-49.0) 04/02/24 02:43 Plt Count 240 thou/uL (152-406) 04/02/24 02:43 PT 12.4 SECONDS (9.5-12.5) 03/31/24 02:45 INR 1.13 03/31/24 02:45 APTT 33.7 SECONDS (24.3-36.9) 03/31/24 02:45 Sodium 135 mEq/L (136-145) L 04/02/24 02:43 Potassium 4.1 mEq/L (3.5-5.1) D 04/02/24 02:43 BUN 23 mg/dL (7-18) H 04/02/24 02:43 Creatinine 0.98 mg/dL (0.70-1.30) 04/02/24 02:43 Glucose 175 mg/dL (74-106) H 04/02/24 02:43 Magnesium 2.3 mg/dL (1.6-2.4) 04/02/24 02:43 Total Bilirubin 0.2 mg/dL (0.2-1.0) 04/01/24 03:07 AST 16 U/L (15-37) 04/01/24 03:07 ALT 33 U/L (16-61) 04/01/24 03:07 Alkaline Phosphatase 75 U/L (45-117) 04/01/24 03:07 Home Medications: Albuterol Inhaler [Ventolin Inhaler*] 2 puff IH Q6H PRN 30 Days #1 inh 04/02/24 Amox/Clavulanate [Augmentin 875-125 Tab*] 875 mg PO BID 7 Days #14 tab 04/02/24 Benzonatate [Tessalon Perle*] 200 mg PO TID PRN 10 Days #30 cap 04/02/24 Mometasone/Formoterol [Dulera 200 Mcg/5 Mcg Inhaler] 2 puff IH BID 30 Days #1 inhaler 04/02/24 predniSONE [Prednisone*] 20 mg PO BID 5 Days #10 tab 04/02/24 New Medications: Amox/Clavulanate [Augmentin 875-125 Tab*] 875 mg PO BID 7 Days #14 tab Mometasone/Formoterol [Dulera 200 Mcg/5 Mcg Inhaler] 2 puff IH BID 30 Days #1 inhaler predniSONE [Prednisone*] 20 mg PO BID 5 Days #10 tab Benzonatate [Tessalon Perle*] 200 mg PO TID PRN 10 Days #30 cap PRN Reason: Cough Albuterol Inhaler [Ventolin Inhaler*] 2 puff IH Q6H PRN 30 Days #1 inh PRN Reason: Shortness Of Breath Physician Discharge Instructions: 43 year-old male with past medical history of kidney stones, recurrent pneumonia last episode was in 2013, chronic tobacco user, who presented with sudden onset shortness of breath since the last 2 days. Patient states shortness of breath has been gradually worsening. He states shortness of breath exacerbated with chest pressure. He admits to cough with intermittent wheezing was evaluated by Pulmonary, can Discharge home, follow up with Pulmonary after discharge Assessment COPD Exacerbation-DC home with PO prednisone-Folllow up Pulmonary after discharge Pnuemonia- DC home on inhalers, PO antibitotics, follow up with Pulmonary in 1-2 weeks Tobacco use- educated on Tobacco cessation Continue home medicines as previously prescribed GOAL: Clear understanding of disease process INSTRUCTIONS: Physician Discharge Instructions: -Follow-up with PCP in 1 to 2 weeks -Please call Dr. Seth at [phone] if any questions regarding hospital stay -Please call nursing station at [phone] if any nursing or medication questions -Return to the emergency room if symptoms worsen Diet: ADA, low sodium Activity: Fall precautions Diet: Low sodium Activity: Fall precautions Followup: NONE,NONE [Primary Care Provider] - CINTHIA CHASE [OUTSIDE PHYSICIAN] - Time spent managing pt's care (in minutes): 55
--- NOTE | 2024-04-02 12:40 | P.PN ---
Subjective Date of Service: 04/02/24 Chief Complaint: COPD exacerbation Subjective: Improving (Patient is improving doing better ambulating no new complaints) Review of Systems Respiratory: Shortness of Breath Physical Examination - Vital Signs Temperature: 98.1 F Blood Pressure: 140/87 Pulse: 75 Respirations: 18 Pulse Ox (%): 96 - Physical Exam General: Alert, Oriented x3 Neck: Supple Respiratory: Clear to auscultation bilaterally, Diminished - Studies Microbiology Data (last 24 hrs): 04/01/24 08:28 Sputum Sputum Gram Stain - Final Assessment And Plan - Current Problems (Diagnosis) (1) COPD exacerbation Status: Acute Plan: Patient admitted with COPD exacerbation plan to discharge home on prednisone 10 mg twice a day long-acting bronchodilator (2) Sleep apnea Status: Acute Plan: Patient complains of loud snoring which she has had for a number of years denies any excessive daytime somnolence also noted some apneic spells at night need a sleep study as an 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
== END 2024-04-02 10:17 | disposition home or self-care (01) | DRG 193 ==
LOC: ER 02:30 → EDBD 04:36 → ERHOLD 04:36 → 2ND 05:30 → OBSVTOIN 04-01 11:50
PROVIDERS: ADMIT Internal Medicine; ATTEND Hospitalist
DX: J18.9 Pneumonia, unspecified organism (principal); J96.01 Acute respiratory failure with hypoxia; J44.1 Chronic obstructive pulmonary disease with (acute) exacerbation; J44.0 Chronic obstructive pulmonary disease with (acute) lower respiratory infection; E78.5 Hyperlipidemia, unspecified; G47.33 Obstructive sleep apnea (adult) (pediatric); F17.210 Nicotine dependence, cigarettes, uncomplicated; R91.8 Other nonspecific abnormal finding of lung field; Z11.52 Encounter for screening for COVID-19; Z99.81 Dependence on supplemental oxygen; Z90.49 Acquired absence of other specified parts of digestive tract; Z28.310 Unvaccinated for COVID-19; Z79.899 Other long term (current) drug therapy
CPT/HCPCS: 36415; 71045; 71275; 80048; 80053; 82947; 83605; 83735; 83880; 84443; 84484; 85025; 85610; 85730; 87040; 87070; 87205; 87804; 87811; 93005; 94640; 96365; 96367; 96375; 99285; G0378; J0692; J0696; J2919; J2920; J3475; J3535; J7030; J7050; J7512; J7613; J7614; J7644; Q9967